=== PATIENT | female | born 1990 | race African-American/Black ===

== ENCOUNTER 2017-02-10 13:56 | Emergency (ER) | payer OTHER ==
--- NOTE | 2017-02-10 14:31 | ER Document Report ---
HPI - HPI Patient complains to provider of: FATIGUE Pain Level: Denies Context: pt is a 26 yo female with hx/o iron def anemia presenting to ED today c/o fatigue x several days. denies any abnormal bleeding, no heavy menses. pt does take an oral iron supplement. no transfusions in the past. pt denies recent fever, dysuria, cough. + nausea, no vomiting - CARDIOVASCULAR Cardiovascular: DENIES: Chest pain - REPRODUCTIVE Reproductive: DENIES: : - DERM Skin Color: Normal Past Medical History - General Information source: Patient - Social History Smoking Status: Never Smoker Chew tobacco use (# tins/day): No Frequency of alcohol use: None Drug Abuse: None Lives with: Family Family History: Reviewed & Not Pertinent Patient has suicidal ideation: No Patient has homicidal ideation: No - Medical History Medical History: Other - iron deficiency anemia Renal/ Medical History: Reports: Hx Ovarian Cysts. Denies: Hx Peritoneal Dialysis Surgical Hx: Negative - Immunizations Hx Diphtheria, Pertussis, Tetanus Vaccination: Yes Vertical Provider Document - CONSTITUTIONAL Agree With Documented VS: Yes - INFECTION CONTROL TRAVEL OUTSIDE OF THE [place] IN LAST 30 DAYS: No - HEENT HEENT: Atraumatic, Normal ENT Exam, PERRLA - NECK Neck: Normal Inspection, Supple - RESPIRATORY Respiratory: Breath Sounds Normal, No Respiratory Distress O2 Sat by Pulse Oximetry: 99 - CARDIOVASCULAR Cardiovascular: Regular Rate, Regular Rhythm - GI/ABDOMEN Gastrointestinal: Abdomen Soft, Abdomen Non-Tender - BACK Back: Normal Inspection - MUSCULOSKELETAL/EXTREMETIES Musculoskeletal/Extremeties: MAEW, FROM, Non-Tender - NEURO Level of Consciousness: Awake, Alert, Appropriate - DERM Integumentary: Warm, Dry Course - Re-evaluation Re-evalutation: 02/10/17 15:59 H/H 10/32, urinalysis normal, HCG neg, chem normal. results reviewed with patient. no clear cause of fatigue. pt stable for discharge and follow up with PCM. pt agreeable with plan - Vital Signs Vital signs: Temp Pulse Resp BP Pulse Ox 98.9 F 101 H 16 142/92 H 99 02/10/17 14:05 02/10/17 14:05 02/10/17 14:05 02/10/17 14:05 02/10/17 14:05 - Laboratory Result Diagrams: 02/10/17 14:58 02/10/17 14:58 Discharge - Discharge Clinical Impression: Fatigue Qualifiers: Fatigue type: unspecified Qualified Code(s): R53.83 - Other fatigue Condition: Stable Disposition: HOME, SELF-CARE Instructions: Fatigue ([facility]) Additional Instructions: your labs were normal today your hemaglobin was 10 please follow up with your primary care for further evaluation Forms: Elevated Blood Pressure
[2017-02-10 15:14] LABS: ABSOLUTE BASOPHILS # (AUTO) 0.1 10^3/uL (0.0-0.2); ABSOLUTE EOSINOPHILS # (AUTO) 0.2 10^3/uL (0.0-0.6); ABSOLUTE LYMPHOCYTES (AUTO) 1.7 10^3/uL (0.5-4.7); ABSOLUTE MONOCYTES (AUTO) 0.6 10^3/uL (0.1-1.4); ABSOLUTE NEUT (AUTO) 3.3 10^3/uL (1.7-8.2); BASOPHILS % (AUTO) 1.5 % (0-2); EOSINOPHILS % (AUTO) 3.1 % (0-6); HEMATOCRIT 31.4 % (36.0-47.0); HEMOGLOBIN 10.3 g/dL (12.0-15.5); HGB HCT DIFFERENCE -0.5; LYMPHOCYTES % (AUTO) 29.8 % (13-45); MEAN CORPUSCULAR HEMOGLOBIN 26.9 pg (27.0-33.4); MEAN CORPUSCULAR HGB CONC 32.8 g/dL (32.0-36.0); MEAN CORPUSCULAR VOLUME 82 fl (80-97); MONOCYTES % (AUTO) 9.6 % (3-13); RED BLOOD COUNT 3.84 10^6/uL (3.72-5.28); RED CELL DISTRIBUTION WIDTH 14.7 % (11.5-14.0); WHITE BLOOD COUNT 5.9 10^3/uL (4.0-10.5)
[2017-02-10 15:15] LABS: APPEARANCE,URINE CLEAR; BILIRUBIN,URINE NEGATIVE (NEGATIVE); GLUCOSE, URINE NEGATIVE (NEGATIVE); KETONES,URINE NEGATIVE (NEGATIVE); LEUKOCYTE ESTERASE,URINE NEGATIVE (NEGATIVE); NITRITE,URINE NEGATIVE (NEGATIVE); PROTEIN,URINE NEGATIVE (NEGATIVE); URINE SPECIFIC GRAVITY 1.012; UROBILINOGEN,URINE NEGATIVE mg/dL (<2.0)
[2017-02-10 15:26] LABS: ALANINE AMINOTRANSFERASE 23 U/L (9-52); ALKALINE PHOSPHATASE 44 U/L (38-126); ANION GAP 12 (5-19); ASPARTATE AMINO TRANSFERASE 21 U/L (14-36); BILIRUBIN,DIRECT 0.3 mg/dL (0.0-0.4); BILIRUBIN,TOTAL 0.4 mg/dL (0.2-1.3); BLOOD UREA NITROGEN 12 mg/dL (7-20); CALCIUM 9.8 mg/dL (8.4-10.2); CARBON DIOXIDE 28 mmol/L (22-30); CHLORIDE 101 mmol/L (98-107); CREATININE RESULT 0.82 mg/dL (0.52-1.25); GLUCOSE 83 mg/dL (75-110); POTASSIUM 4.5 mmol/L (3.6-5.0); SODIUM 140.8 mmol/L (137-145); TOTAL PROTEIN 7.8 g/dL (6.3-8.2)
[2017-02-10 16:17] VITALS: BP 130/82
== END 2017-02-10 16:19 | disposition home or self-care (01) ==
LOC: ER 13:56
DX: R53.83 Other fatigue (principal)
CPT/HCPCS: 36415; 80053; 81001; 81025; 85025; 99284

== ENCOUNTER 2017-06-07 12:39 | Emergency (ER) | payer OTHER ==
--- NOTE | 2017-06-07 13:20 | ER Document Report ---
ED Medical Screen (RME) - General Chief Complaint: Allergic Reaction Stated Complaint: POSSIBLE ALLERGIC REACTION Time Seen by Provider: 06/07/17 13:18 Notes: Patient was at oncology clinic receiving a transfusion of iron. Patient states this was the first time she ever had this infusion. She states within "seconds " of the infusion been started she began to have diffuse abdominal pain and some shortness of breath. She states she had some relief with Benadryl and steroids that were given IV but now feels that the pain is coming back. TRAVEL OUTSIDE OF THE [place] IN LAST 30 DAYS: No - Related Data Allergies/Adverse Reactions: sea cucumbers Adverse Reaction (Uncoded 07/20/12 13:34) rash swelling Past Medical History - Social History Frequency of alcohol use: None Drug Abuse: None Renal/ Medical History: Reports: Hx Ovarian Cysts. Denies: Hx Peritoneal Dialysis - Immunizations Hx Diphtheria, Pertussis, Tetanus Vaccination: Yes Physical Exam - Vital signs Vitals: Temp Pulse Resp BP Pulse Ox 98.6 F 96 18 131/79 H 98 06/07/17 12:48 06/07/17 12:48 06/07/17 12:48 06/07/17 12:48 06/07/17 12:48 Course - Vital Signs Vital signs: Temp Pulse Resp BP Pulse Ox 98.6 F 96 16 131/79 H 98 06/07/17 12:48 06/07/17 12:48 06/07/17 13:11 06/07/17 12:48 06/07/17 12:48
--- NOTE | 2017-06-07 13:52 | RADIOLOGY REPORT (SQ) ---
EXAM DESCRIPTION: CHEST PA/LAT COMPLETED DATE/TIME: 06/07/2017 1:42 pm REASON FOR STUDY: cp COMPARISON: 11/17/2012, 12/27/2010 chest films EXAM PARAMETERS: NUMBER OF VIEWS: two views TECHNIQUE: Digital Frontal and Lateral radiographic views of the chest acquired. RADIATION DOSE: NA LIMITATIONS: none FINDINGS: LUNGS AND PLEURA: No opacities, masses or pneumothorax. No pleural effusion. MEDIASTINUM AND HILAR STRUCTURES: No masses or contour abnormalities. HEART AND VASCULAR STRUCTURES: Mild cardiomegaly. No evidence for failure. BONES: No acute findings. HARDWARE: None in the chest. OTHER: No other significant finding. IMPRESSION: NO SIGNIFICANT RADIOGRAPHIC FINDING IN THE CHEST. TECHNICAL DOCUMENTATION: JOB ID: [id number] [employer]- All Rights Reserved
[2017-06-07 14:38] LABS: ABSOLUTE LYMPHOCYTES (AUTO) 0.7 10^3/uL (0.5-4.7); ABSOLUTE MONOCYTES (AUTO) 0.8 10^3/uL (0.1-1.4); BASOPHILS % (AUTO) 0.2 % (0-2); EOSINOPHILS % (AUTO) 0.1 % (0-6); HEMATOCRIT 30.4 % (36.0-47.0); HGB HCT DIFFERENCE -0.4; LYMPHOCYTES % (AUTO) 5.7 % (13-45); MEAN CORPUSCULAR HEMOGLOBIN 26.4 pg (27.0-33.4); MEAN CORPUSCULAR HGB CONC 32.9 g/dL (32.0-36.0); MEAN CORPUSCULAR VOLUME 80 fl (80-97); MONOCYTES % (AUTO) 6.4 % (3-13); RED BLOOD COUNT 3.78 10^6/uL (3.72-5.28); RED CELL DISTRIBUTION WIDTH 15.5 % (11.5-14.0); SEGMENTED NEUTROPHILS % (AUTO) 87.6 % (42-78); WHITE BLOOD COUNT 12.6 10^3/uL (4.0-10.5)
[2017-06-07 14:46] LABS: APPEARANCE,URINE SLIGHTLY-CLOUDY; BILIRUBIN,URINE NEGATIVE (NEGATIVE); GLUCOSE, URINE NEGATIVE (NEGATIVE); KETONES,URINE NEGATIVE (NEGATIVE); LEUKOCYTE ESTERASE,URINE NEGATIVE (NEGATIVE); NITRITE,URINE NEGATIVE (NEGATIVE); PROTEIN,URINE >=500 mg/dL (NEGATIVE); UROBILINOGEN,URINE NEGATIVE mg/dL (<2.0)
[2017-06-07] MEDS ORDERED: MORPHINE SULFATE 10 MG/ML INJ IV ONE (14:52)
[2017-06-07 15:00] LABS: ALANINE AMINOTRANSFERASE 28 U/L (9-52); ALBUMIN 4.1 g/dL (3.5-5.0); ALKALINE PHOSPHATASE 46 U/L (38-126); ANION GAP 11 (5-19); ASPARTATE AMINO TRANSFERASE 25 U/L (14-36); BILIRUBIN,DIRECT 0.4 mg/dL (0.0-0.4); BILIRUBIN,TOTAL 0.8 mg/dL (0.2-1.3); BLOOD UREA NITROGEN 8 mg/dL (7-20); CALCIUM 9.9 mg/dL (8.4-10.2); CARBON DIOXIDE 28 mmol/L (22-30); CHLORIDE 103 mmol/L (98-107); CREATININE RESULT 0.82 mg/dL (0.52-1.25); GLUCOSE 119 mg/dL (75-110); POTASSIUM 4.5 mmol/L (3.6-5.0); SODIUM 141.8 mmol/L (137-145); TOTAL PROTEIN 7.7 g/dL (6.3-8.2)
--- NOTE | 2017-06-07 15:44 | ER Document Report ---
ED Allergic Reaction - General Mode of Arrival: Medic Information source: Patient TRAVEL OUTSIDE OF THE [place] IN LAST 30 DAYS: No - HPI Patient complains to provider of: Possible Allergic Reaction Onset: This afternoon Medication Exposure: Other - see notes above Skin rash / itching: Extremities Associated symptoms: Other - see notes above <KRZYSZTOF NIXON - Last Filed: 06/07/17 16:48> <JULIUS MAHMOOD - Last Filed: 06/07/17 22:56> - General Chief Complaint: Allergic Reaction Stated Complaint: POSSIBLE ALLERGIC REACTION Time Seen by Provider: 06/07/17 13:18 Notes: 27 year old female with history of anemia presents to the ED via EMS complaining of having a possible allergic reaction to IV iron infusion that she began to receive earlier this afternoon. Patient reports that she received a small amount of the iron to test for an allergic reaction. Patient began to experience as if her stomach was 'eating itself from the inside', developed a diffuse burning sensation, and then proceeded to vomit shortly before losing consciousness. At this time, the patient is still experiencing a itchy sensation to the bilateral upper extremities and just above the sternum along with weakness and diffuse burning. Patient reports that she is on her menstrual period. Patient is also having some diffuse abdominal pain. (KRZYSZTOF NIXON) Denies sensation of throat swelling or difficulty breathing. (JULIUS MAHMOOD) - Related Data Allergies/Adverse Reactions: sea cucumbers Adverse Reaction (Uncoded 07/20/12 13:34) rash swelling Past Medical History - General Information source: Patient - Social History Smoking Status: Never Smoker Chew tobacco use (# tins/day): No Frequency of alcohol use: None Drug Abuse: None Family History: Reviewed & Not Pertinent Patient has suicidal ideation: No Patient has homicidal ideation: No Renal/ Medical History: Reports: Hx Ovarian Cysts. Denies: Hx Peritoneal Dialysis - Immunizations Hx Diphtheria, Pertussis, Tetanus Vaccination: Yes <KRZYSZTOF NIXON - Last Filed: 06/07/17 16:48> <JULIUS MAHMOOD - Last Filed: 06/07/17 22:56> - Medical History Notes: Hx of Anemia. (KRZYSZTOF NIXON) Review of Systems - Review of Systems Constitutional: See HPI, Weakness, Other - diffuse burning sensation EENT: No symptoms reported Cardiovascular: No symptoms reported Respiratory: No symptoms reported Gastrointestinal: See HPI, Vomiting Genitourinary: No symptoms reported Female Genitourinary: See HPI, Last menstrual period - currently on Musculoskeletal: No symptoms reported Skin: See HPI, Other - diffuse itchy sensation to the bilateral upper extremities and just above the sternum Hematologic/Lymphatic: No symptoms reported Neurological/Psychological: See HPI, Lost consciousness -: Yes All other systems reviewed and negative <KRZYSZTOF NIXON - Last Filed: 06/07/17 16:48> Physical Exam <KRZYSZTOF NIXON - Last Filed: 06/07/17 16:48> <JULIUS MAHMOOD - Last Filed: 06/07/17 22:56> - Vital signs Vitals: Temp Pulse Resp BP Pulse Ox 98.6 F 96 18 131/79 H 98 06/07/17 12:48 06/07/17 12:48 06/07/17 12:48 06/07/17 12:48 06/07/17 12:48 - Notes Notes: GENERAL: Alert, interacts well. No acute distress. HEAD: Normocephalic, atraumatic. EYES: Pupils equal, round, and reactive to light. Extraocular movements intact. ENT: Oral mucosa moist, tongue midline. NECK: Full range of motion. Supple. Trachea midline. LUNGS: Clear to auscultation bilaterally, no wheezes, rales, or rhonchi. No respiratory distress. HEART: Regular rate and rhythm. No murmurs, gallops, or rubs. ABDOMEN: Soft. Non-distended. Bowel sounds present in all 4 quadrants. Mild diffuse tenderness to palpation with some voluntary guarding which is worse to the RUQ. BACK: Mild mid-line and muscular paraspinal tenderness to palpation. No step- off or deformity. EXTREMITIES: Moves all 4 extremities spontaneously. No edema, radial and dorsalis pedis pulses 2/4 bilaterally. No cyanosis. NEUROLOGICAL: Alert and oriented x3. Normal speech. PSYCH: Normal affect, normal mood. SKIN: Warm, dry, normal turgor. No rashes or lesions noted. No hives visualized. (KRZYSZTOF NIXON) Course - Laboratory Result Diagrams: 06/07/17 14:10 06/07/17 14:10 <KRZYSZTOF NIXON - Last Filed: 06/07/17 16:48> - Laboratory Result Diagrams: 06/07/17 14:10 06/07/17 14:10 <JULIUS MAHMOOD - Last Filed: 06/07/17 22:56> - Re-evaluation Re-evalutation: 06/07/17 15:48 CBC shows mild leukocytosis of 12.6, this can come both from an allergic reaction and just from the iron infusion itself, hemoglobin is stable at 10.0, it was 10.2 on the 12th, CMP unremarkable, urinalysis shows large blood consistent with the fact that she is on her period right now and does have 6 squamous epithelial cells. test is negative, chest x-ray unremarkable , EKG is nonischemic. Patient has already received Benadryl and dexamethasone, no evidence of ongoing allergic reaction at this time, no respiratory compromise now or during allergic reaction, at present recommend that the patient follow-up with Dr. Ybarra as an outpatient to discuss further what other treatments they may use for her iron deficiency anemia. Presently patient is safe for discharge to home with oral Benadryl, oral prednisone and oral Pepcid. No need for epinephrine and no need for EpiPen at home as there is unlikely to be an accidental exposure to iron infusion. (JULIUS MAHMOOD) - Vital Signs Vital signs: Temp Pulse Resp BP Pulse Ox 98.8 F 85 16 130/77 H 98 06/07/17 16:16 06/07/17 16:16 06/07/17 16:16 06/07/17 16:16 06/07/17 16:16 - Laboratory Laboratory results interpreted by me: 06/07/17 06/07/17 06/07/17 14:10 14:10 14:10 WBC 12.6 H Hgb 10.0 L Hct 30.4 L MCH 26.4 L RDW 15.5 H Seg Neutrophils % 87.6 H Lymphocytes % 5.7 L Absolute Neutrophils 11.0 H Glucose 119 H Urine Protein >=500 H Urine Blood LARGE H - EKG Interpretation by Me Additional EKG results interpreted by me: 06/07/17 15:48 EKG shows sinus rhythm at a rate of 80, normal axis, normal intervals, no ST segment elevations or depressions, isolated T-wave inversions which are nonspecific in lead V2 per my interpretation. (JULIUS MAHMOOD) Discharge <KRZYSZTOF NIXON - Last Filed: 06/07/17 16:48> <JULIUS MAHMOOD - Last Filed: 06/07/17 22:56> - Discharge Clinical Impression: Pre-hypertension Allergic reaction caused by a drug Qualifiers: Encounter type: initial encounter Qualified Code(s): T78.40XA - Allergy, unspecified, initial encounter Iron deficiency anemia Qualifiers: Iron deficiency anemia type: unspecified iron deficiency Qualified Code(s): D50.9 - Iron deficiency anemia, unspecified Condition: Stable Disposition: HOME, SELF-CARE Additional Instructions: You appear to have had an allergic reaction to the iron infusion. Please continue taking your iron pills. Please discuss with Dr. Haas what other treatments they may wish to use for your iron deficiency anemia. Please take the prednisone as directed until is gone. You may take 1-2 tablets of Benadryl every 6 hours as needed for itching. You should also take Pepcid 1 tablet twice a day to help prevent allergic reaction for the next 2-3 days. Please return for any difficulty breathing or worsening symptoms. Prescriptions: Diphenhydramine HCl [Benadryl] 25 - 50 mg PO QIDP PRN #20 capsule PRN Reason: Famotidine [Pepcid 40 mg Tablet] 40 mg PO BID #10 tablet Prednisone [Deltasone 20 mg Tablet] 3 tab PO DAILY 5 Days tablet Forms: Elevated Blood Pressure Referrals: SHIN LEONARDO MD [Primary Care Provider] - Follow up as needed Scribe Attestation: 06/07/17 22:56 I personally performed the services described in the documentation, reviewed and edited the documentation which was dictated to the scribe in my presence, and it accurately records my words and actions. (JULIUS MAHMOOD) Scribe Documentation - Scribe Written by Adilene:: Adilene Hernandez, 06/07/2017 1700 acting as scribe for :: Ashley <KRZYSZTOF NIXON - Last Filed: 06/07/17 16:48>
[2017-06-07] MEDS ORDERED: DIPHENHYDRAMINE HCL 50 MG/ML VIAL IV ONE (15:51)
[2017-06-07] MEDS ORDERED: DIPHENHYDRAMINE HCL 50 MG/ML VIAL IM ONE (16:05)
[2017-06-07 16:23] VITALS: BP 130/77
--- NOTE | 2017-06-07 21:24 | EKG REPORT ---
SEVERITY:- NORMAL ECG - SINUS RHYTHM : Confirmed by: Ko Love 07-Jun-2017 21:23:42
== END 2017-06-07 16:20 | disposition home or self-care (01) ==
LOC: ER 12:39
DX: R03.0 Elevated blood-pressure reading, without diagnosis of hypertension (principal); T78.40XA Allergy, unspecified, initial encounter; D50.9 Iron deficiency anemia, unspecified; R53.1 Weakness; L29.9 Pruritus, unspecified; R10.9 Unspecified abdominal pain
CPT/HCPCS: 93005; 99284; 96372; 96374; 36415; 85025; 81025; 80053; 81001; 71020; 93010; J1200; J2270